=== PATIENT | male | born 1980 | race African-American/Black ===

== ENCOUNTER 2017-09-20 12:39 | Emergency (ER) | payer OTHER ==
[~2017-09-20] VITALS: Ht 188 cm; Wt 136.4 kg
[2017-09-20 15:38] VITALS: BP 119/61
[2017-09-20] MEDS ORDERED: KETOROLAC TROMETHAMINE 10 MG TABLET PO ONE (16:00)
== END 2017-09-20 16:39 | disposition home or self-care (01) ==
LOC: EMS 12:46
DX: M77.12 Lateral epicondylitis, left elbow (principal)
CPT/HCPCS: 99282